=== PATIENT | female | born 1985 | race Caucasian/White ===

== ENCOUNTER 2020-11-10 13:39 | Observation (INO) ==
[2020-11-10] MEDS ORDERED: Aspirin 81 MG TAB.CHEW PO ONE (13:55)
[2020-11-10] MEDS ORDERED: Isovue-370 500 ML BOTTLE IVP ONE (14:16)
[2020-11-10 14:17] LABS: Basophils # 0.1 K/mcL (0.0-0.2); Basophils % 0.7 %; Hematocrit 38.4 % (35.3-44.9); Hemoglobin 13.7 g/dL (11.5-15.4); Immature Granulocytes % 0.3 % (0-4); Lymphocytes % 20.9 %; Mean Corpuscular HGB Conc 35.7 g/dL (31.6-35.5); Mean Corpuscular Hemoglobin 32.4 pg (28.0-33.3); Mean Corpuscular Volume 90.8 fL (83.0-100.0); Mean Platelet Volume 9.7 fL (9.4-12.4); Monocytes # 0.5 K/mcL (0.0-1.3); Monocytes % 5.5 %; Neutrophils # 6.9 K/mcL (1.6-8.9); Platelet Count 215 K/mcL (140-400); Red Blood Count 4.23 M/mcL (3.82-4.97); Red Cell Distribution Width 11.6 % (11.5-14.5); Segmented Neutrophils % 72.6 %; White Blood Count 9.5 K/mcL (4.3-11.1)
[2020-11-10 14:25] LABS: Prothrombin Time 11.7 Seconds (9.4-12.1)
[2020-11-10 14:27] LABS: Activated Partial Thrombo Time 28.9 Seconds (26.0-36.0)
[2020-11-10] MEDS ORDERED: *HR* Heparin 5,000 UNIT/ML VIAL IVP ONE (14:28)
[2020-11-10] MEDS ORDERED: *HR* Heparin 5,000 UNIT/ML VIAL IVP PRN ×2 (14:28)
[2020-11-10] MEDS ORDERED: Heparin 25,000UNIT/250ML 1/2NS 25,000 UNIT/250 ML IV.SOLN IVC SCH (14:30)
[2020-11-10 14:43] LABS: Heparin anti-factor XA UFH 0.04 IU/mL (0.30-0.70)
[2020-11-10 14:46] LABS: Alanine Aminotransferase 12 Units/L (7-52); Albumin 4.6 g/dL (3.5-5.7); Albumin/Globulin Ratio 1.6 (1.1-2.2); Alkaline Phosphatase 42 Units/L (34-104); Aspartate Amino Transferase 17 Units/L (13-39); BUN/Creatinine Ratio 17 (6-26); Bilirubin,Direct 0.1 mg/dL (0.0-0.2); Bilirubin,Indirect 0.4 mg/dL (0.0-1.0); Bilirubin,Total 0.5 mg/dL (0.3-1.0); Blood Urea Nitrogen 12 mg/dL (6-20); Calcium 9.8 mg/dL (8.6-10.3); Carbon Dioxide 24 mEq/L (23-29); Chloride 103 mEq/L (98-107); Globulin 2.9 g/dL (2.4-3.5); Glucose 104 mg/dL (70-105); Lipase 10 Units/L (11-82); Osmolality,Calculated 282 (280-300); Potassium 3.3 mEq/L (3.5-5.1); Sodium 136 mEq/L (136-145); Total Protein 7.5 g/dL (6.4-8.9); Troponin I < 0.03 ng/mL (< 0.04); eGFR For African Americans > 60 (> 60); eGFR For Non-African Americans > 60 (> 60)
[2020-11-10 15:10] LABS: Thyroid Stimulating Hormone 18.728 mcIU/mL (0.340-5.600)
[2020-11-10] MEDS ORDERED: Perflutren Lipid Microsphere 1.3 ML in 0.9 % Sodium Chloride 8.7 ML IVP PRN (15:20)
[2020-11-10 16:04] LABS: Bilirubin,Urine Negative (Negative); Blood,Urine Trace (Negative); Clarity,Urine Clear (Clear); Color,Urine Colorless (Yellow); Glucose,Urine (UA) Normal (Normal); Ketones,Urine Negative (Negative); Leukocyte Esterase,Urine Negative (Negative); Mucus,Urine Few per lpf (None-Few); Nitrite,Urine Negative (Negative); PH,Urine 7.5 pH Units (5.0-8.0); Protein,Urine Negative (Neg-Trace); RBC,Urine 0-3 per hpf (0-3); Specific Gravity,Urine 1.012 (1.010-1.025); Squamous Epithelial Cell,Urine Few per hpf (None-Few); Urobilinogen,Urine Normal (Normal)
[2020-11-10 16:15] LABS: Amphetamine Screen,Urine Negative ng/mL (Cutoff=1000); Barbiturate Screen,Urine Negative ng/mL (Cutoff=200); Benzodiazepines Screen,Urine Negative ng/mL (Cutoff=200); Cannabinoid Screen,Urine Negative ng/mL (Cutoff = 50); Cocaine Screen,Urine Negative ng/mL (Cutoff= 300); Opiate Screen,Urine Negative ng/mL (Cutoff=300); Phencyclidine Screen,Urine Negative ng/mL (Cutoff=25)
[2020-11-10] MEDS: Nitroglycerin 0.4 MG TAB.SUBL SL PRN ×4 (16:29→22:20)
[2020-11-10] MEDS ORDERED: Naloxone 0.4 MG/ML INJ IVP PRN (18:04)
[2020-11-10] MEDS ORDERED: Melatonin 3 MG TABLET PO PRN (18:04)
[2020-11-10] MEDS ORDERED: Ondansetron ODT 4 MG TAB.RAPDIS SL PRN (18:04)
[2020-11-10] MEDS: carvediloL 6.25 MG TABLET PO SCH (19:52)
[2020-11-11 05:58] LABS: Basophils # 0.1 K/mcL (0.0-0.2); Basophils % 1.1 %; Immature Granulocytes % 0.1 % (0-4); Lymphocytes # 2.1 K/mcL (0.6-4.6); Lymphocytes % 28.2 %; Mean Corpuscular HGB Conc 33.3 g/dL (31.6-35.5); Mean Corpuscular Hemoglobin 31.8 pg (28.0-33.3); Mean Corpuscular Volume 95.4 fL (83.0-100.0); Mean Platelet Volume 9.8 fL (9.4-12.4); Monocytes # 0.6 K/mcL (0.0-1.3); Monocytes % 7.9 %; Neutrophils # 4.7 K/mcL (1.6-8.9); Platelet Count 192 K/mcL (140-400); Red Blood Count 4.09 M/mcL (3.82-4.97); Red Cell Distribution Width 11.9 % (11.5-14.5); Segmented Neutrophils % 62.7 %; White Blood Count 7.4 K/mcL (4.3-11.1)
[2020-11-11 06:06] LABS: INR 1.2; Prothrombin Time 13.7 Seconds (9.4-12.1)
[2020-11-11 06:19] LABS: BUN/Creatinine Ratio 18 (6-26); Blood Urea Nitrogen 11 mg/dL (6-20); Calcium 9.2 mg/dL (8.6-10.3); Carbon Dioxide 27 mEq/L (23-29); Chloride 105 mEq/L (98-107); Chol/HDL Ratio 2.8 (0-4.9); Cholesterol 126 mg/dL (< 200); Glucose 89 mg/dL (70-105); HDL Cholesterol 45 mg/dL (40-59); LDL Cholesterol,Calculated 68 mg/dL (< 100); Magnesium 1.8 mg/dL (1.6-2.6); Osmolality,Calculated 283 (280-300); Potassium 3.6 mEq/L (3.5-5.1); Sodium 137 mEq/L (136-145); Triglycerides 64 mg/dL (< 150); eGFR For African Americans > 60 (> 60); eGFR For Non-African Americans > 60 (> 60)
[2020-11-11] MEDS ORDERED: Aspirin 81 MG TAB.CHEW PO SCH (09:00)
[2020-11-11] MEDS: carvediloL 6.25 MG TABLET PO SCH (09:20)
[2020-11-11] MEDS ORDERED: Regadenoson 0.4 MG/5 ML SYRINGE IVP ONE (10:16)
[2020-11-11] MEDS ORDERED: Famotidine 20 MG TABLET PO ONE (10:52)
[2020-11-11 11:33] LABS: Estimated Average Glucose 108 mg/dl; Hemoglobin A1C 5.4 %
[2020-11-11] MEDS: GI Cocktail 40 ML EACH PO ONE ×2 (12:03→14:58)
[2020-11-11 14:57] VITALS: BP 96/59
== END 2020-11-11 17:51 | disposition home or self-care (01) ==
LOC: EMEROOARM 13:39 → 3BNU 13:39
PROVIDERS: ADMIT Pharmacist; ATTEND Pharmacist